=== PATIENT | male | born 1960 | race Caucasian/White ===

== ENCOUNTER 2017-07-08 21:10 | Emergency (ER) | payer OTHER, SELFPAY ==
[2017-07-08] MEDS ORDERED: Bupivacaine 0.5% 10 ML VIAL ONE (21:29)
[2017-07-08] MEDS ORDERED: Benzocaine 20% Spray 60 ML CAN ONE ×2 (21:31→21:32)
[2017-07-08] MEDS ORDERED: Ibuprofen 200 MG TAB ONE (21:56)
[2017-07-08] MEDS ORDERED: Clindamycin 150 MG CAP ONE (21:56)
[2017-07-08] MEDS ORDERED: Lisinopril 5 MG TAB ONE (21:57)
== END 2017-07-08 22:02 | disposition home or self-care (01) ==
LOC: BURERS 21:10
DX: K04.7 Periapical abscess without sinus (principal); I10 Essential (primary) hypertension; I25.2 Old myocardial infarction; I25.10 Atherosclerotic heart disease of native coronary artery without angina pectoris; F17.210 Nicotine dependence, cigarettes, uncomplicated; Z79.899 Other long term (current) drug therapy
CPT/HCPCS: 41800; J3490